=== PATIENT | female | born 1995 | race Caucasian/White ===

== ENCOUNTER 2020-09-09 19:37 | Emergency (ER) | payer OTHER ==
[~2020-09-09 19:37] MED LIST: COLACE 100MG C100 MG PO; COMPLETENATE T1 EACH PO; IBUPROFEN600 MG PO; LORTAB 5-325 M1 EACH PO; REGLAN10 MG PO; TYLENOL 325MG325 MG PO; ZANTAC150 MG PO
[2020-09-09 20:53] LABS: HEMOGLOBIN 15.9 gm/dl (12.3-15.3); RED BLOOD COUNT 5.43 M/UL (4.00-5.10); WHITE BLOOD COUNT 14.8 K/UL (4.5-11.0)
[2020-09-09 21:12] LABS: BUN/CREATININE RATIO 23 (0-10)
[2020-09-09] MEDS ORDERED: ZOFRAN ODT 4 MG4 MG PO (22:36)
[2020-09-09] MEDS ORDERED: MACROBID 100 M100 M1 PO (22:36)
== END 2020-09-09 22:42 | disposition home or self-care (01) ==
LOC: ER1 19:37
PROVIDERS: Physician Assistant
DX: N39.0 Urinary tract infection, site not specified (principal); J06.9 Acute upper respiratory infection, unspecified; Z20.822 Contact with and (suspected) exposure to COVID-19; Z88.0 Allergy status to penicillin; Z88.5 Allergy status to narcotic agent
CPT/HCPCS: 0240U; 71045; 80053; 81001; 84703; 85025; 87081; 87086; 87880; 99284